=== PATIENT | female | born 1985 | race Two or more races ===

== ENCOUNTER → 2025-04-29 | Outpatient (CLI) | payer MEDICAID, SELFPAY ==
--- NOTE | 2025-04-29 | XR_ITS ---
Examination: Left elbow 3 views Technique: Elbow AP, oblique, lateral 3 views Exam date and time: April 29, 2025 1431 hours INDICATIONS: Patient fell 3 days ago with injury to the elbow, elbow pain. FINDINGS: No fracture or dislocation. No foreign body IMPRESSION: No fracture or dislocation.
--- NOTE | 2025-04-29 | XR_ITS ---
Examination: Wrist, left 3 views Technique: Wrist AP, oblique, lateral 3 views Date and time of exam: April 29, 2025 1431 hours INDICATION: Patient fell 3 days ago with injury to the wrist, wrist pain. FINDINGS: No fracture or dislocation. No foreign body IMPRESSION: No fracture or dislocation
--- NOTE | 2025-04-29 | XR_ITS ---
Examination: Hand, left 3 views Technique: Hand AP, oblique, lateral 3 views Date and time of exam: April 29, 2025 1431 hours INDICATIONS: Patient fell 3 days ago with injury to the hand and wrist, wrist pain hand pain FINDINGS: Moderate juxta-articular bone demineralization No acute fracture Or dislocation IMPRESSION: No acute fracture
== END | disposition home or self-care (01) ==
PROVIDERS: PCP Physician Assistant; Referring Provider Physician Assistant; Visit Provider Physician Assistant
DX: S59.902A Unspecified injury of left elbow, initial encounter (principal); S69.92XA Unspecified injury of left wrist, hand and finger(s), initial encounter; W19.XXXA Unspecified fall, initial encounter
CPT/HCPCS: 73080; 73110; 73130